=== PATIENT | female | born 1950 | race Caucasian/White ===

== ENCOUNTER 2017-07-23 10:48 | Inpatient (IN) | payer MEDICARE, OTHER ==
[2017-07-23] VITALS (25 sets, daily range): BP systolic 104–136; BP diastolic 51–76
[~2017-07-23] VITALS: Ht 167.6 cm; Wt 79.9 kg
[~2017-07-23 10:48] MED LIST: CALCIUM500 M1 PO; CARVEDILOL6.25 MG PO; LISINOPRIL2.5 M1 PO; POTASSIUM CHLO10 MEQ PO; PREDNISONE 20MG20 MG PO; TESSALON PERLE100 MG PO; TRIAMT/HCTZ TAB 37. PO; VITAMIN B121000 MC2 SL; VITAMIN D31000 IU PO; ZITHROMAX Z-PA250 M1 PO
[2017-07-23] MEDS ORDERED: LISINOPRIL 5MG T5 MG PO (11:36)
[2017-07-23] MEDS ORDERED: HCTZ/TRIAMTEREN1 CAP PO (11:37)
[2017-07-23] MEDS ORDERED: PANTOPRAZOLE SO40 MG PO (11:38)
[2017-07-23] MEDS ORDERED: EVISTA60 MG PO (11:38)
[2017-07-23] MEDS ORDERED: FLONASE 50 MCG16 GM (11:39)
[2017-07-23] MEDS ORDERED: ALLEGRA ALLERGY60 MG PO (11:39)
--- NOTE | 2017-07-23 14:13 | RADIOLOGY REPORT PS360 ---
CHEST(2 VIEWS-NOT PORTABLE) HISTORY: anemia, SVT Patient Age: 67 years: Female Ordering Physician: Brigitte Boucher MD TECHNIQUE: PA and lateral chest COMPARISON :04/27/2015 CXR FINDINGS The heart is slightly larger than on previous study. A loop recorder is now evident at the the anterior left chest projected over the left heart. Very Minor chronic changes lung funez bilateral Borderline cardiomegaly CT ratio 14.3/28.5. The pulmonary vascularity is slightly more generous but without overt CHF. No pleural effusions. No focal pneumonia. Chest wall unremarkable. T-spine intact. IMPRESSION: Borderline cardiomegaly. With Loop recorder anterior left chest, projected over left heart Nothing definitely acute. Lungs clear. No focal pneumonia.
--- NOTE | 2017-07-23 14:27 | ACUTE CARE PROGRESS NOTE (QUA) ---
Progress Notes Subjective Date 07/23/17 Time 1423 Note See H&P from [facility]. Patient found to be anemic on work-up for ablation for episodic SVT. Hgb =6.9 in office today. Admitted for evaluation and transfusion. Objective Findings Last VS-Temp:98.5 B/P:133/76 Pulse:78 Resp:18 SaO2:100 ROOM AIR Last weight lbs:176 oz:6 K.003 Method:Bed Scales Assessment/Plan Problem List 1. Anemia 2. Supraventricular tachycardia, paroxysmal Plan: order additional tests, transfuse. This inpt stay is expected to cross 2 MNs from start of care No at 1428
[2017-07-23 15:38] LABS: LYMPH % 24.7 % (10-50.0)
[2017-07-23 16:09] LABS: NEUTROPHILS 74 % (42-76)
[2017-07-23 16:49] LABS: HEMOGLOBIN 6.7 g/dL (12.2-16.2)
--- NOTE | 2017-07-23 17:44 | RADIOLOGY REPORT PS360 ---
CT ABD PELVIS W/ CONTRAST COMPARISON: None HISTORY: Anemia TECHNIQUE: Multiaxial scans obtained from the hemidiaphragms to the pelvic floor and were performed with IV and oral contrast. Sagittal and coronal reformats were evaluated as well. FINDINGS: Lower lung funez are clear of infiltrate. There are 2 tiny calcified granulomata left lower lobe. There are prominent esophageal varices. The liver is lower limits of normal in size and shows mild lobulation of the contour. There is mild splenomegaly. The stomach and pancreas appear grossly normal, there has been a previous cholecystectomy. The adrenal glands are normal. The kidneys are normal size and show symmetrical function both appear normal. There is a small umbilical hernia containing fat only measuring 1.7 cm at the mouth. There is moderate fat within the mesentery the small bowel appears normal. I do not definitely identify the appendix but there are no pericecal inflammatory changes. There is minimal scattered stool throughout the colon. There is been previous hysterectomy. The urinary bladder is unremarkable. There is no free fluid in the pelvis. IMPRESSION: 1. Findings suggesting portal hypertension with probable early cirrhosis of the liver, mild splenomegaly as well. 2. Evidence of old granulomatous disease 3. Small umbilical hernia containing fat only
[2017-07-23 17:45] LABS: ABO BLOOD TYPE O; ANTIHUMAN GLOB CROSSMATCH COMPAT; RH BLOOD TYPE POSITIVE
[2017-07-23 22:57] LABS: ANTIHUMAN GLOB CROSSMATCH COMPAT
[2017-07-24] VITALS (10 sets, daily range): BP systolic 116–136; BP diastolic 50–70
--- NOTE | 2017-07-24 08:35 | PHARMACY CLINIC NOTE ---
Patient Demographics Patient Demographics Admission date: 07/23/17 Date: 07/24/17 Time: 0834 Allergies Coded Allergies: hydrocodone (07/23/17) HEIGHT- FT: 5 IN: 6.00 K.520 VTE General Information Labs: Laboratory Tests 07/24 07/23 0110 1430 Hematology Hgb (12.2 - 16.2 g/dL) 9.0 L 6.7 *L Hct (37.0 - 47.0 %) 31.6 L 24.1 L Plt Count (142 - 424 K/mm3) 128 L Disclaimer The following section includes nursing documentation that has been pulled in for pharmacy review. Patient's VTE score: 0 Patient's VTE Risk: VERY LOW RISK Clinical trial participant? No VTE prophylaxis [id number] VTE prophylaxis ordered? Yes Type of prophylaxis/treatment: SHARI at 0834
--- NOTE | 2017-07-24 10:16 | ACUTE CARE PROGRESS NOTE (QUA) ---
Progress Notes Subjective Date 07/24/17 Time 1009 Note Her hemoglobin is 9 after transfusion of 3 units of packed red blood cells. Her CT revealed evidence of cirrhosis and esophageal varices. The varices could certainly be the source of bleeding on a chronic basis. She is a nondrinker. Thus the etiology of the cirrhosis could be steatohepatitis or cholestasis or infectious etiology. I spoke with Dr. Miramontes and he suggested that I consult Dr. Cano. This is done. I will also order an arthritis panel and hepatitis panel. Patient/family reports: feeling better Objective Findings Laboratory Tests 07/24/17 0110: Hgb 9.0 L, Hct 31.6 L 07/23/17 2301: Misc Test Units BLOOD UNIT RELEASE 07/23/17 2020: Misc Test Units BLOOD UNIT RELEASE 07/23/17 1757: Misc Test Units BLOOD UNIT RELEASE 07/23/17 1430: MCH 16.3 L 07/23/17 1430: Sodium 138, Potassium 4.0, Chloride 105, Carbon Dioxide 26, BUN 11, Creatinine 0.7, Estimated Creat Clear 100, Estimated GFR (MDRD) 84, Glucose 100, Calcium 9.3, Ferritin 2 L, Total Bilirubin 1.1 H, AST 17, ALT 14, Alkaline Phosphatase 73, Total Protein 7.8, Albumin 3.6, Globulin 4.2 H, Albumin/Globulin Ratio 0.9 L, WBC 4.0 L, RBC 4.12 L, Hgb 6.7 *L, Hct 24.1 L, MCV 58.5 L, RDW 22.7 H, Plt Count 128 L, Gran % 69.4, Gran # 2.8, Total Counted 50, Lymphocytes % 24.7, Monocytes % 5.9, Neutrophils 74, Lymphocytes (Manual) 14, Lymphocytes # 1.0, Monocytes (Manual) 12 H, Monocytes # 0.2, Platelet Estimate 300K, PUBS MCHC 27.8 L, Retic Count 3.0, Antibody Screen NEGATIVE, Miscellaneous Test POSITIVE Last VS-Temp:98.9 B/P:119/58 Pulse:78 Resp:18 SaO2:94 ROOM AIR Last weight lbs:175 oz:5 K.52 Method:Bed Scales Exam General appearance: alert, no acute distress Eyes: anicteric, conjunctiva clear, pupils reactive to light, PERRLA ENT: mucous membranes moist Cardiovascular: regular rate & rhythm Respiratory: good air movement, basilar rales (few) ABD: soft, no tenderness, no organomegaly Extremities: no peripheral edema Skin: dry, intact, normal color Neuro: alert, oriented, speech clear Reviewed: medications, vital signs, lab results, radiology report Assessment/Plan Problem List 1. Anemia 2. Supraventricular tachycardia, paroxysmal 3. Cirrhosis of liver 4. Esophageal varices in cirrhosis Patient condition Stable Plan: order additional tests This inpt stay is expected to cross 2 MNs from start of care No at 1016
[2017-07-25] VITALS (14 sets, daily range): BP systolic 105–141; BP diastolic 57–92
[2017-07-25 06:54] LABS: HEMOGLOBIN 8.1 g/dL (12.2-16.2); LYMPH % 27.7 % (10-50.0)
--- NOTE | 2017-07-25 08:18 | ACUTE CARE PROGRESS NOTE (QUA) ---
Progress Notes Subjective Date 07/25/17 Time 0715 Note Doing well ; denies CP and SOB; eating without problems; normal stools and voiding QS; ambulating without problems Objective Findings Laboratory Tests 07/25/17 0630: Sodium 139, Potassium 4.0, Chloride 108 H, Carbon Dioxide 24, BUN 9, Creatinine 0.7, Estimated Creat Clear 100, Estimated GFR (MDRD) 84, Glucose 103, Calcium 8.4 L, WBC 3.5 L, RBC 4.26, Hgb 8.1 L, Hct 29.9 L, MCV 70.2 L, RDW 22.5 H, Plt Count 97 L, MPV 9.4, Gran % 58.0, Gran # 2.0, Lymphocytes % 27.7, Monocytes % 7.5, Eosinophils % 6.4, Basophils % 0.4, Lymphocytes # 1.0, Monocytes # 0.3, Eosinophils # 0.2, Basophils # 0.0, PUBS MCHC 26.9 L, MCH 18.9 L 07/24/17 1035: Uric Acid 5.0, Ferritin 4 L, ESR 12 Vital Signs Date Time Temp Pulse Resp B/P Pulse O2 O2 Flow FiO2 Ox Delivery Rate 07/25 0748 97.9 70 16 105/57 93 ROOM AIR 07/25 0327 99.0 75 18 123/59 97 ROOM AIR 07/24 2022 98.5 75 16 116/59 97 ROOM AIR 07/24 1937 98.9 82 16 128/70 94 07/24 1600 98.9 82 16 128/70 94 ROOM AIR 07/24 0940 98.9 78 18 119/58 94 Current Medications Triamterene/HCTZ 0 .STK-MED ONE PO (DC) Potassium Chloride 0 .STK-MED ONE PO (DC) Pantoprazole Sodium 40 MG DAILY PO Lisinopril 5 MG DAILY PO Triamterene/HCTZ 0.5 TABLET DAILY PO Carvedilol 6.25 MG BID PO Potassium Chloride 10 MEQ BID PO Sodium Chloride 1,000 ML .Q10H IV Influenza Virus Vaccine Quadrival 0.5 ML PRN PRN IM Nicotine 21 MG DAILYP PRN TD 07/24 1500 10 2300 07/25 0700 Intake Total 720 1401 Output Total Balance 720 1401 Intake, IV 1401 Intake, Oral 720 Patient 177 lb Weight Last VS-Temp:97.9 B/P:105/57 Pulse:70 Resp:16 SaO2:93 ROOM AIR Last weight lbs:177 oz:3 K.371 Method:Bed Scales Exam General appearance: alert, no acute distress Cardiovascular: regular rate & rhythm Respiratory: clear to auscultation (bilat anterior and posterior) ABD: soft, no tenderness, no guarding, bowel sounds present Extremities: no peripheral edema, no calf tenderness Neuro: alert, oriented Assessment/Plan Problem List 1. Anemia 2. Supraventricular tachycardia, paroxysmal 3. Cirrhosis of liver 4. Esophageal varices in cirrhosis Patient condition Improved Plan: To see GI today This inpt stay is expected to cross 2 MNs from start of care No at 0818
--- NOTE | 2017-07-25 10:06 | Operative Note ---
Upper GI Endoscopy Procedure date: 07/25/17 Date of : 52 Procedure:Upper GI Endoscopy Esophagogastroduodenoscopy with cold biopsies Indications: Mrs. Cardona is a 67-year-old female who presents with iron deficiency anemia. Her hemoglobin and hematocrit upon admission were 6.7 and 24.1 with an MCV of 58.5. She also had thrombocytopenia with a platelet count of 128,000. She did have fatigue and malaise with some dyspnea on exertion or symptomatic anemia. Her blood work did show a ferritin level of 4. She does have normal kidney function. A CAT scan of the abdomen did show findings suggestive of portal hypertension with probable early cirrhosis with mild splenomegaly. There was some mild lobulation of the contour of the liver. The stomach and pancreas appeared normal but there was previous cholecystectomy. The patient reports no hematemesis or melena. She has had no hematochezia. She reports no abdominal pain or weight loss. She reports no use of nonsteroidal anti-inflammatory drugs but does take occasional Tylenol. The patient did have a colonoscopy in April [address] Javier Gutierrez M.D. which was normal. The patient's liver chemistries are normal with slight escalation of total bilirubin. Performing Provider: Jose Cano MD Referring Provider: Rashid Boucher M.D. Sedation: MAC sedation Procedure: Prior to the procedure, a history and physical exam was performed, and patients medications and allergies were reviewed. The risks and benefits of the procedure and the sedation options and risks were discussed with the patient. All questions were answered and informed consent was obtained. The patient was brought to the procedure room. Patient identification and proposed procedure were verified by the physician and the nurse. The patient was placed in a left lateral decubitus position and the scope was passed under direct vision. Throughout the procedure, the patient's blood pressure, pulse, and oxygen saturations were monitored continuously. The endoscope was introduced through the mouth, and advanced to the second part of duodenum. The upper GI endoscopy was accomplished without difficulty. The patient tolerated the procedure well. Findings: The scope was passed directly into the upper esophagus and advanced to the third portion of the duodenum. The post bulbar duodenum and duodenal bulb were normal with normal mucosa and conniventes. The scope was withdrawn through a normal duodenal bulb and pylorus into the stomach. There was evidence of nodular GAVE of the antrum. There was moderate atrophic gastritis of the body and fundus. There were no gastric varices. Cold biopsies were taken from the antrum 1. Cold biopsies were taken from the body and fundus to evaluate for atrophic gastritis prepyloric region. The scope was then withdrawn into the esophagus. There were grade 2 esophageal varices without stigmata. Immediate complications: None EBL (ml): 0 Impression: 1. 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 Grade 2 esophageal varices without stigmata 3. Chronic atrophic gastritis Recommendations: I will obtain additional blood work to exclude other etiologies including autoimmune hepatitis, primary biliary cirrhosis, inherited forms of liver disease (alpha-1 antitrypsin) and chronic viral hepatitis. I will obtain ammonia level and alpha-fetoprotein. We will obtain hepatic fibrotic markers. She will follow up in the office in the next couple of weeks. I would recommend parenteral iron infusion while hospitalized. 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 I will also obtain H. pylori antibody and antiparietal cell antibody because of her chronic atrophic gastritis. I would obtain B12 levels which are often low with atrophic gastritis. She will need to remain on nonselective beta tye. at 1022
[2017-07-26 04:56] VITALS: BP 117/70
[2017-07-26 07:53] VITALS: BP 120/57
--- NOTE | 2017-07-26 08:02 | ACUTE CARE PROGRESS NOTE (QUA) ---
Progress Notes Subjective Date 07/26/17 Time 0746 Note Feels well; eating and drinking well; denies any pain, SOB, or nausea; voiding QS; Bowels are moving; had EGD yesterday per Dr. Cano; does not know the results. 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 Cano; had parental iron infusion Objective Findings Laboratory Tests 07/25/17 1418: Ammonia 23 Vital Signs Date Time Temp Pulse Resp B/P Pulse O2 O2 Flow FiO2 Ox Delivery Rate 07/26 0456 98.2 78 18 117/70 96 ROOM AIR 07/25 1958 97.8 78 20 124/69 94 ROOM AIR 07/25 1920 98.5 77 20 124/69 95 07/25 1520 98.8 74 16 117/68 95 07/25 1420 98.7 71 16 120/60 97 07/25 1320 98.8 69 16 128/79 95 07/25 1256 69 16 117/67 07/25 1250 98.8 69 16 134/79 96 07/25 1220 98.8 70 16 122/77 97 07/25 1205 97.9 68 16 118/74 95 07/25 1150 97.9 64 16 132/72 98 07/25 1135 98.4 74 16 141/92 97 07/25 1120 98.4 69 16 110/66 91 07/25 1120 98.4 69 16 110/66 91 07/25 1052 72 16 122/68 97 ROOM AIR 07/25 1042 74 16 122/64 94 ROOM AIR 07/25 1033 71 16 96/54 07/25 1032 73 16 107/59 95 ROOM AIR 07/25 1016 98 07/25 0838 97.9 70 16 105/57 93 Current Medications Iron Sucrose 200 MG 1300 IV Sodium Chloride 100 ML Lactated Ringer's 1,000 ML .STK-MED ONE IV (DC) Pantoprazole Sodium 40 MG DAILY PO Lisinopril 5 MG DAILY PO Triamterene/HCTZ 0.5 TABLET DAILY PO Carvedilol 6.25 MG BID PO Potassium Chloride 10 MEQ BID PO Sodium Chloride 1,000 ML .Q10H IV Influenza Virus Vaccine Quadrival 0.5 ML PRN PRN IM Nicotine 21 MG DAILYP PRN TD 07/25 1500 07/25 2300 07/26 0700 Intake Total 1341 Output Total Balance 1341 Intake, IV 1341 Output, Stool Patient 177 lb 176 lb Weight Last VS-Temp:98.2 B/P:117/70 Pulse:78 Resp:18 SaO2:96 ROOM AIR Last weight lbs:176 oz:4 K.946 Method:Bed Scales Exam General appearance: alert, active, no acute distress Cardiovascular: regular rate & rhythm Respiratory: clear to auscultation (bilat anterior and posterior) ABD: non-distended, soft, no tenderness, no guarding, bowel sounds present Extremities: no peripheral edema, no calf tenderness Neuro: alert, oriented, speech clear Assessment/Plan Problem List 1. Anemia 2. Supraventricular tachycardia, paroxysmal 3. Cirrhosis of liver 4. Esophageal varices in cirrhosis 5. Gastritis, chronic 6. GAVE (gastric antral vascular ectasia) Patient condition Stable Plan: will check CBC and B12 this AM ; saline lock ; home if H&H is stable This inpt stay is expected to cross 2 MNs from start of care No at 0801
[2017-07-26 08:32] LABS: HEMOGLOBIN 8.9 g/dL (12.2-16.2)
[2017-07-26 08:33] LABS: LYMPH # 0.8 K/mm3 (0.7-4.5); LYMPH % 22.9 % (10-50.0)
[2017-07-26 08:42] LABS: Alpha-1-Antitrypsin 151 mg/dL (90-200)
[2017-07-26] MEDS ORDERED: K-DUR 1010 MEQ PO (09:01)
[2017-07-26] MEDS ORDERED: CARVEDILOL6.25 MG PO (09:02)
[2017-07-26] MEDS ORDERED: CARAFATE 1GM TAB1 GM PO (09:04)
[2017-07-26] MEDS ORDERED: FEOSOL325 MG PO (09:05)
[2017-07-26 09:44] VITALS: BP 120/57
[2017-07-26 10:39] LABS: HBsAg Screen Negative (Negative); Hep A Ab, IgM Negative (Negative); Hep B Core Ab, IgM Negative (Negative); Hep C Virus Ab <0.1 (0.0-0.9)
[2017-07-26 11:05] VITALS: BP 120/57
[2017-07-26 14:39] LABS: Actin (Smooth Muscle) Antibody 28 Units (0-19); Antiparietal Cell Antibody 6.7 Units (0.0-20.0); Mitochondrial (M2) Antibody <20.0 Units (0.0-20.0)
[2017-07-26 16:41] LABS: ACE 15 U/L (14-82)
[2017-07-26 18:36] LABS: Antinuclear Antibodies, IFA Negative (.)
[2017-07-26 18:36] LABS: Antinuclear Antibodies, IFA Negative (.)
--- NOTE | 2017-07-27 08:28 | DISCHARGE SUMMARY STANDARD ---
Discharge Summary ([facility]) Date of admission: 07/23/17 Date of discharge: 07/26/17 Problem List: 1. Anemia 2. Supraventricular tachycardia, paroxysmal 3. Cirrhosis of liver 4. Esophageal varices in cirrhosis 5. Gastritis, chronic 6. GAVE (gastric antral vascular ectasia) History of present illness: Ms. Cardona is a 67yo female patient of Dr. Boucher who was seen in the office of A and directly admitted for a workup of anemia. She was seen by Dr. Haque for ablation for SVT. Pt stated that her blood work showed she was anemic and they decided not to do her procedure. Her Hgb was 6.9 in office. She was admitted for evaluation and transfusion. Exam on admission: General Appearance: NAD. HEENT: unremarkable. Oral cavity: no lesions, mucosa moist and WNL, no erythema. Neck: supple, no lymphadenopathy. Chest: normal shape and expansion. Heart: RSR. Lungs: clear to auscultation. Abdomen: soft and nontender, no organomegaly or masses. Neurologic Exam: Intact, gait normal. Skin: normal, no rash. Back: mild dorsal kyphosis. Extremities: no leg edema. Hospital Course: The patient's hemoglobin was 9 after transfusion of 3 units of packed red blood cells. Her CT revealed evidence of cirrhosis and esophageal varices. Dr. Boucher spoke with Dr. Miramontes and he suggested to consult Dr. Cano. An arthritis panel and hepatitis panel were ordered. She was seen by Dr. Cano who performed an EGD. It showed Nodular GAVE with ablation, probable CAPPS, grade 2 esophageal varices, and chronic atrophic gastritis. He ordered additional labs. Her hepatitis panel was negative. All other labs are still pending. Her H & H was stable and she was able to be discharged home with a f/u in the office. Discharge medications: Stop taking the following medications: Carvedilol (Carvedilol 6.25MG) 6.25 MG TABLET ORAL AT BEDTIME NIGHTLY Continue taking these medications: Potassium Chloride (POTASSIUM CHLORIDE 10mEq CAP) 10 MEQ CAPSULE.ER 10 Milliequivalent ORAL TWICE A DAY Qty = 30 CHOLECALCIFEROL (VITAMIN D3) (Vitamin D) 1,000 UNIT TABLET 2,000 INT. UNITS ORAL DAILY Cyanocobalamin (Vitamin B12) 1,000 MCG TAB 1,000 MICROGRAM SUBLINGUAL DAILY Calcium Carbonate (Calcium) 500 MG TABLET 500 MILLIGRAM ORAL THREE TIMES A DAY LISINOPRIL (Lisinopril) 5 MG TABLET 5 MILLIGRAM ORAL DAILY Hydrochlorothiazide W/Triamter (Triamterene-Hctz 37.5-25 MG Tb) 1 EACH TABLET 1 CAPSULE ORAL DAILY RALOXIFENE HCL (Evista) 60 MG TABLET 60 MILLIGRAM ORAL DAILY Pantoprazole Sodium (Pantoprazole 40MG) 40 MG TABLET.DR 40 MILLIGRAM ORAL DAILY FEXOFENADINE HCL ([place] Allergy) 60 MG TABLET 60 MILLIGRAM ORAL DAILY as needed for ALLERGY Fluticasone Propionate (Flonase 50 Mcg Nasal [place]) 16 GM SPRAY.SUSP 1 SPRAY Nasal TWICE A DAY as needed for ALLERGY Start taking the following new medications: Carvedilol (Carvedilol 6.25MG) 6.25 MG TABLET 6.25 MILLIGRAM ORAL TWICE A DAY Qty = 60 Refills = 4 Potassium Chloride (K-Tab ER) 10 MEQ TABLET.ER 10 Milliequivalent ORAL DAILY Qty = 30 Refills = 4 Sucralfate (Carafate Tab) 1 GM TABLET 1 GRAM ORAL BEFORE MEALS AND AT BEDTIME Qty = 30 Refills = 4 Ferrous Sulfate (Feosol) 325 MG TABLET 325 MILLIGRAM ORAL TWICE A DAY Qty = 100 Refills = 2 Disposition: F/U with: Brigitte Boucher MD Follow up: 7 DAYS Activity: Cont Current activity Diet: Continue same diet Discharge to: HOME Agency needed? N at 0828
[2017-07-28 05:37] LABS: AFP, Tumor Marker 3.8 ng/mL (0.0-8.3)
[2017-07-28 07:40] LABS: ALT (SGPT) P5P 9 IU/L (0-40); Alpha 2-Macroglobulins, Qn 240 mg/dL (110-276); Apolipoprotein A-1 120 mg/dL (116-209); GGT 20 IU/L (0-60); Haptoglobin 54 mg/dL (34-200); Necroinflammat Activity Grade A0-No activity (.); Necroinflammat Activity Score 0.03 (0.00-0.17)
[2017-07-28 14:41] LABS: Phenotype (PI) MS (.)
--- OUTSIDE RECORDS SUMMARY | 2017-08-03 17:53 | External Medical Summary Rpt | CCD ---
Author Author [employer] Organization [employer] Address Unknown Phone Unavailable Purpose Continuity of Care Document - through 2016
--- OUTSIDE RECORDS SUMMARY | 2017-08-03 17:53 | External Medical Summary Rpt ---
Author Author , KIA ADAM Address Unknown Phone [email or web address] Care Team Providers Care [employer]ed [employer] Contact Printer Name Role Phone Alex Mercedes III, MD, Alex Martinez III, MD Purpose Continuity of Care Document - 09-22-2013 through 2016 Problems Code Diagnosis DOS Provider Status 807.01 807.01 09-22-2013 Pablo FRACTURE [facility] RIB-CLOSED E849.0 E849.0 09-22-2013 Pablo ACCIDENT IN [facility] E885.9 E885.9 FALL 09-22-2013 Pablo FROM [facility] [place] SLIPPING, Hospital TRIPPING, OR STUMBLING NEC Allergies, Adverse Reactions, Alerts Type Drug Allergy Adverse Reaction to Substance Substance Reaction Severity Acetaminophen Unknown Unknown Hydrocodone Unknown Unknown Vital Signs 09-22-2013 10:01 Name Value Interpretat Reference Comment ion Range Body 98.9 [degF] Temperature BP 88 mm[Hg] Diastolic BP Systolic 131 mm[Hg] Heart 82 /min Rate/Pulse O2% 96 % Respiratory 20 /min Rate 09-22-2013 10:00 Name Value Interpretat Reference Comment ion Range BP 88 mm[Hg] Diastolic BP Systolic 131 mm[Hg] Heart 82 /min Rate/Pulse O2% 96 % Respiratory 20 /min Rate Results Labs Lab Lab Date Result Refere Interp Status Commen Order Detail nces retati t Range on Blood product special preparation [Type] (07-23-2017 23:01) Blood BLOOD complet product 017 UNIT ed 23:01 RELEASE special prepara tion [Type] Blood product special preparation [Type] (07-23-2017 20:20) Blood BLOOD complet product 017 UNIT ed 20:20 RELEASE special prepara tion [Type] Blood product special preparation [Type] (07-23-2017 17:57) Blood BLOOD complet product 017 UNIT ed 17:57 RELEASE special prepara tion [Type] Blood type & Crossmatch panel in Blood (07-23-2017 14:30) Major COMPAT complet crossma 017 ed tch 14:30 [interp retatio n] Major COMPAT complet crossma 017 ed tch 14:30 [interp retatio n] by Immedia te spin Blood type & Crossmatch panel in Blood (07-23-2017 14:30) Blood NEGATIV NEGATIV complet group 017 E E ed antibod 14:30 y screen [Presen ce] in Serum or Plasma Rh POSITIV complet [Type] 017 E ed in 14:30 Blood ABO O complet group 017 ed [Type] 14:30 in Blood CBC with Ordered Manual Differential panel in Blood (07-23-2017 14:30) LYMPH 14 % 10% - Normal complet 017 50% ed 14:30 Platele 300K complet ts 017 ed [Presen 14:30 ce] in Blood by Light microsc opy Encounters Encounter Start End Date Code Location Performer Type Date Emergency JONATAN Martinez (ER) 3 09:15 3 10:01 [facility] Alex Cross
--- OUTSIDE RECORDS SUMMARY | 2017-08-03 17:53 | External Medical Summary Rpt ---
Author Author , KIA ADAM Address Unknown Phone Care Team Providers Care Staff Mechanical Engineer Name Role Phone Alex Mercedes III, MD, Alex Martinez III, MD Purpose Continuity of Care Document - 09-22-2013 through 2016 Problems Code Diagnosis DOS Provider Status 807.01 807.01 09-22-2013 Pablo FRACTURE [facility] RIB-CLOSED E849.0 E849.0 09-22-2013 Pablo ACCIDENT IN [facility] E885.9 E885.9 FALL 09-22-2013 Pablo FROM [facility] SLIPPING, Hospital TRIPPING, OR STUMBLING NEC Allergies, [...] JONATAN Martinez (ER) 3 09:15 3 10:01 [facility] Alex Cross
--- OUTSIDE RECORDS SUMMARY | 2017-08-03 17:53 | External Medical Summary Rpt ---
Demographics Preferred Language Vincentian Marital Status Unknown Moravian Affiliation Unknown Race Unknown Ethnic Group Unknown Author Author KIA Address Unknown Phone Immunization No patient found.
--- OUTSIDE RECORDS SUMMARY | 2017-08-03 17:53 | External Medical Summary Rpt ---
Demographics Preferred Language Haitian Marital Status Unknown Latter-Day Affiliation Unknown Race Unknown Ethnic Group Unknown Author Author KIA Address Unknown Phone Immunization No patient found.
--- OUTSIDE RECORDS SUMMARY | 2017-08-03 17:54 | External Medical Summary Rpt ---
Author Author [employer], [employer] Organization [employer] Address Unknown Phone Unavailable Results CBC W Auto Differential panel in Blood Observa Value Referen Units Interpr Notes Date tion ce etation Range Granulocy 1.8 - 7.8 K/mm3 Normal No Oct 3 francisco informati 2017 8:00 [#/volume on in AM ] in source Blood by data Automated count Granulocy 37.0 - % Normal No Oct 3 francisco/100 80.0 informati 2017 8:00 leukocyte on in AM s in source Blood by data Automated count Hematocri 37.0 - % Low No Oct 3 t [Volume 47.0 informati 2017 8:00 on in AM Fraction] source of Blood data Hemoglobi 12.2 - g/dL Low No Oct 3 n 16.2 informati 2017 8:00 [Mass/vol on in AM ume] in source Blood data Lymphocyt 0.7 - 4.5 K/mm3 Normal No Oct 3 es informati 2017 8:00 [#/volume on in AM ] in source Unspecifi data ed specimen by Automated count Lymphocyt 10 - 50.0 % Normal No Oct 3 es informati 2017 8:00 [#/volume on in AM ] in source Unspecifi data ed specimen by Automated count Erythrocy 27 - 31.2 pg Low No Oct 3 te mean informati 2017 8:00 corpuscul on in AM ar source hemoglobi data n [Entitic mass] Erythrocy 31.8 - g/dl Low No Oct 3 te mean 35.4 informati 2017 8:00 corpuscul on in AM ar source hemoglobi data n concentra tion [Mass/vol ume] by Automated count Erythrocy 82.2 - fL Low No Oct 3 te mean 97.8 informati 2017 8:00 corpuscul on in AM ar volume source [Entitic data volume] by Automated count Monocytes 0.1 - 1.0 K/mm3 Normal No Oct 3 informati 2017 8:00 [#/volume on in AM ] in source Blood by data Automated count Monocytes 1.7 - 9.3 % Normal No Jul 3 /100 informati 2016 8:00 leukocyte on in AM s in source Blood by data Automated count Platelets 142 - 424 K/mm3 Low No Jul 3 informati 2016 8:00 [#/volume on in AM ] in source Blood data Erythrocy 4.2 - 5.4 M/mm3 Normal No Jul 26 francisco informati 2016 8:00 [#/volume on in AM ] in source Amniotic data fluid Erythrocy 11.5 - % High No Jul 26 te 17.5 alert informati 2016 8:00 distribut on in AM ion width source [Entitic data volume] by Automated count Leukocyte 4.8 - K/mm3 Low No Jul 26 s 10.8 informati 2016 8:00 [#/volume on in AM ] in source Blood data Cobalamin (Vitamin B12) [Mass/volume] in Serum Observa Value Referen Units Interpr Notes Date tion ce etation Range Cobalamin 211 - 946 pg/mL No Performed Jul 26 (Vitamin informati at: CB 2016 6:00 B12) on in - [facility] AM [Mass/vol source ume] in data [place] [address] [address] 0 [place], [place] [id number] Telemarketing Representative: Taye Walden PhD, Phone: [phone] HCV FibroSure Observa Value Referen Units Interpr Notes Date tion ce etation Range Apolipopr 116 - 209 mg/dL No No Jul 2 otein A-I informati informati 2016 2:18 on in on in PM [Mass/vol source source ume] in data data Serum or Plasma Bilirubin 0.0 - 1.2 mg/dL No No Oct 2 .total informati informati 2016 2:18 [Mass/vol on in on in PM ume] in source source Serum or data data Plasma Gamma 0 - 60 IU/L No No Jul 2 glutamyl informati informati 2016 2:18 transfera on in on in PM se source source [Enzymati data data c activity/ volume] in Serum or Plasma Alanine 0 - 40 IU/L No No Oct 2 aminotran informati informati 2016 2:18 sferase on in on in PM [Enzymati source source c data data activity/ volume] in Serum or Plasma by With P-5'-P Interpr Comment . No No Quantit Jul 2 etation informa informa ative 2017 s: tion in tion in results 2:18 PM source source of 6 data data biochem ical tests are analyze dusing a computa tional algorit hm to provide a quantit ativesu rrogate marker (0.0-1. 0) for liver fibrosi s (METAVI R F0-F4) and for necroin flammat ory activit y (METAVI R A0-A3). Fibrosi Comment . No No <0.21 = Jul 25 s informa informa Stage 2017 Scoring tion in tion in F0 - No 2:18 PM : source source data data fibrosi s0.21 - 0.27 = Stage F0 - F10.27 - 0.31 = Stage F1 - Portal fibrosi s0.31 - 0.48 = Stage F1 - F20.48 - 0.58 = Stage F2 - Bridgin g fibrosi s with few septa0. 58 - 0.72 = Stage F3 - Bridgin g fibrosi s with many septa0. 72 - 0.74 = Stage F3 - F4>0.74 = Stage F4 - Cirrhos is Necroin Comment . No No <0.17 = Jul 25 flamm informa informa Grade 2017 Activit tion in tion in A0 - No 2:18 PM y source source Scoring data data Activit : y0.17 - 0.29 = Grade A0 - A10.29 - 0.36 = Grade A1 - Minimal activit y0.36 - 0.52 = Grade A1 - A20.52 - 0.60 = Grade A2 - Moderat e activit y0.60 - 0.62 = Grade A2 - A3>0.62 = Grade A3 - Severe activit y Service Comment . No No The Jul 25 informa informa negativ 2017 comment tion in tion in e 2:18 PM source source predict data data chivo value of a Fibrote st score <0.31(a bsence of clinica lly signifi cant fibrosi s) was 85% whencom pared to liver biopsy in 1,270 HCV infecte d patient swith a 38% prevale nce of signifi cant liver fibrosi s (F2, 3or 4). The positiv e predict chivo value of a Fibro-t est score>0 .48 (F2, 3, 4) was 61% in that same patient cohort. HCVFibr oSURE is not recomme nded in patient s with Gilbert Disease , acute hemolys is (e.g. HCV ribavir in therapy mediate d hemolys is) acute hepa-ti tis of the liver, extra-h epatic cholest asis, transpl ant patient s, and/or renalin suffici ency patient s. Any of these clinica l situati onsmay lead to inaccur ate quantit ative predict ions offibro sis and necroin flammat ory activit y in the liver.T HIS TEST WAS DEVELOP ED AND ITS PERFORM ANCE CHARACT ERISTIC SDETERM INED BY [facility] . IT HAS NOT BEEN CLEARED OR APPROVE DBY THE FOOD AND DRUG ADMINIS TRATION . THE FDA HAS DETERMI NEDTHAT SUCH CLEARAN CE OR APPROVA L IS NOT NECESSA RY.Perf orming site:[place] [id number]: Catherine schneider MDFor inquiri es, the physici an may contact Branch: Lab: Fibrosis 0.00 - No High No Jul 2 score 0.21 informati informati 2017 2:18 on in on in PM source source data data Comment Comment . No No This Jul 25 : informa informa test 2017 tion in tion in was 2:18 PM source source develop data data ed and its perform ance charact eristic sdeterm ined by [facility] . It has not been cleared or approve dby the Food and Drug Adminis tration . The FDA hasdete rmined that such clearan ce or approva l is notnece ssary.F or questio ns regardi ng this report please contact custome rservic e at [phone] .Perfor med at: - [facility] [address], [place], [place] [address] Directo r: Alex Webb MD, Phone: [phone] Fibrosi Comment . No No F3-Brid Oct 2 s stage informa informa ging 2017 tion in tion in fibrosi 2:18 PM source source s with data data many septa Necroinfl 0.00 - No No No Oct 2 ammatory 0.17 informati informati informati 2017 2:18 activity on in on in on in PM score source source source data data data Necroin A0-No . No No No Oct 2 flammat activit informa informa informa 2017 ory y tion in tion in tion in 2:18 PM activit source source source y grade data data data Alpha-2-M 110 - 276 mg/dL No No Oct 2 acroglobu informati informati 2017 2:18 george on in on in PM [Mass/vol source source ume] in data data Serum or Plasma Haptoglob 34 - 200 mg/dL No No Oct 2 in informati informati 2017 2:18 [Mass/vol on in on in PM ume] in source source Serum or data data Plasma Ammonia [Mass/volume] in Unspecified specimen Observa Value Referen Units Interpr Notes Date tion ce etation Range Ammonia 19 - 54 umoL/L Normal No Oct 2 [Mass/vol informati 2017 2:18 ume] in on in PM Unspecifi source ed data specimen Basic metabolic panel in Blood Observa Value Referen Units Interpr Notes Date tion ce etation Range Urea 7 - 18 mg/dL Normal No Oct 2 nitrogen informati 2017 6:30 [Mass/vol on in AM ume] in source Serum or data Plasma Calcium 8.5 - mg/dL Low No Oct 2 [Mass/vol 10.1 informati 2017 6:30 ume] in on in AM Serum or source Plasma data Chloride 98 - 107 mmoL/L High No Oct 2 [Moles/vo informati 2017 6:30 lume] in on in AM Serum or source Plasma data Carbon 21.0 - mmoL/L Normal No Oct 2 dioxide, 32.0 informati 2017 6:30 total on in AM [Moles/vo source lume] in data Serum or Plasma Creatinin 0.55 - mg/dL Normal No Oct 2 e 1.02 informati 2017 6:30 [Mass/vol on in AM ume] in source Serum or data Plasma Creatinin 50 - 200 ML/MIN Normal No Oct 2 e renal informati 2017 6:30 clearance on in AM source predicted data by Cockcroft -Gault formula Estimated 59- ML/MIN No REFERENCE Oct 2 informati RANGE: 2017 6:30 glomerula on in >60 AM r source ML/MIN/1. filtratio data 73 SQUARE n rate METERSIf (GF this patient is -A merican, then multiply theresult by 1.210. Glucose 74 - 106 mg/dL Normal No Oct 2 [Mass/vol informati 2016 6:30 ume] in on in AM Serum or source Plasma data Potassium 3.5 - 5.1 mmoL/L Normal No Jul 2 informati 2016 6:30 [Moles/vo on in AM lume] in source Serum or data Plasma Sodium 136 - 145 mmoL/L Normal No Jul 2 [Moles/vo informati 2017 6:30 lume] in on in AM Serum or source Plasma data CBC W Auto Differential panel in Blood Observa Value Referen Units Interpr Notes Date tion ce etation Range Basophils 0 - 0.2 K/MM3 Normal No Jul 2 informati 2016 6:30 [#/volume on in AM ] in source Blood by data Automated count Basophils 0.1 - 2.0 % Normal No Jul 25 informati 2017 6:30 leukocyte on in AM s in source Blood by data Automated count Eosinophi 0.0 - 0.4 K/mm3 Normal No Jul 2 ls informati 2016 6:30 [#/volume on in AM ] in source Blood by data Automated count Eosinophi 0.1 - % Normal No Jul 2 ls/100 12.0 informati 2017 6:30 leukocyte on in AM s in source Blood by data Automated count Granulocy 1.8 - 7.8 K/mm3 Normal No Jul 2 francisco informati 2017 6:30 [#/volume on in AM ] in source Blood by data Automated count Granulocy 37.0 - % Normal No Jul 2 francisco/100 80.0 informati 2017 6:30 leukocyte on in AM s in source Blood by data Automated count Hematocri 37.0 - % Low No Jul 2 t [Volume 47.0 informati 2017 6:30 on in AM Fraction] source of Blood data Hemoglobi 12.2 - g/dL Low No Jul 2 n 16.2 informati 2016 6:30 [Mass/vol on in AM ume] in source Blood data Lymphocyt 0.7 - 4.5 K/mm3 Normal No Jul 2 es informati 2016 6:30 [#/volume on in AM ] in source Unspecifi data ed specimen by Automated count Lymphocyt 10 - 50.0 % Normal No Jul 2 es informati 2016 6:30 [#/volume on in AM ] in source Unspecifi data ed specimen by Automated count Erythrocy 27 - 31.2 pg Low No Oct 2 te mean informati 2016 6:30 corpuscul on in AM ar source hemoglobi data n [Entitic mass] Erythrocy 31.8 - g/dl Low No Oct 2 te mean 35.4 informati 2017 6:30 corpuscul on in AM ar source hemoglobi data n concentra tion [Mass/vol ume] by Automated count Erythrocy 82.2 - fl Low No Oct 2 te mean 97.8 informati 2016 6:30 corpuscul on in AM ar volume source [Entitic data volume] by Automated count Monocytes 0.1 - 1.0 K/mm3 Normal No Oct 2 informati 2017 6:30 [#/volume on in AM ] in source Blood by data Automated count Monocytes 1.7 - 9.3 % Normal No Oct 2 /100 informati 2017 6:30 leukocyte on in AM s in source Blood by data Automated count Platelet 7.4 - fl Normal No Oct 2 mean 10.4 informati 2017 6:30 volume on in AM [Entitic source volume] data in Blood by Automated count Platelets 142 - 424 K/mm3 Low No Oct 2 informati 2017 6:30 [#/volume on in AM ] in source Blood data Erythrocy 4.2 - 5.4 M/mm3 Normal No Oct 2 francisco informati 2017 6:30 [#/volume on in AM ] in source Amniotic data fluid Erythrocy 11.5 - % High No Oct 2 te 17.5 informati 2016 6:30 distribut on in AM ion width source [Entitic data volume] by Automated count Leukocyte 4.8 - K/MM3 Low No Oct 2 s 10.8 informati 2016 6:30 [#/volume on in AM ] in source Blood data Ferritin [Mass/volume] in Serum or Plasma Observa Value Referen Units Interpr Notes Date tion ce etation Range Ferritin 8 - 388 ng/mL Low No Oct 1 [Mass/vol informati 2017 ume] in on in 10:35 AM Serum or source Plasma data Urate [Mass/volume] in Serum or Plasma Observa Value Referen Units Interpr Notes Date tion ce etation Range Urate 2.6 - 7.2 mg/dL Normal No Oct 1 [Mass/vol informati 2016 ume] in on in 10:35 AM Serum or source Plasma data Erythrocyte sedimentation rate by Westergren method Observa Value Referen Units Interpr Notes Date tion ce etation Range Erythrocy 0 - 30 mm/hr Normal No Oct 1 te informati 2016 sedimenta on in 10:35 AM tion rate source by data Westergre n method Hemoglobin & Hematocrit panel in Blood Observa Value Referen Units Interpr Notes Date ti ce etation Range COMMENTS TO GUEST SERVICE HOST: 1 HR POST-TRANSFUSION Hematocri 37.0 - % Low No Jul 24 t [Volume 47.0 informati 2016 1:10 on in AM Fraction] source of Blood data Hemoglobi 12.2 - g/dL Low No Jul 24 n 16.2 informati 2016 1:10 [Mass/vol on in AM ume] in source Blood data Blood product special preparation [Type] Observa Value Referen Units Interpr Notes Date ti ce etation Range Blood BLOOD No No No BLOOD Sep 30 product UNIT informa informa informa UNIT # 2017 RELEASE tion in in in : W0382 11:01 special source source source 17 PM data data data [id number] prepara RELEASE tion D [Type] 7 [id number] rks,Bacilio nO POSITIV E Blood product special preparation [Type] Observa Value Referen Units Interpr Notes Date ti ce etation Range Blood BLOOD No No No BLOOD Sep 30 product UNIT informa informa informa UNIT # 2017 RELEASE ti in in in : W0382 8:20 PM special source source source 17 data data data [id number] prepara RELEASE tion D [Type] 7 2020Spa rks,Bacilio nO POSITIV E Blood product special preparation [Type] Observa Value Referen Units Interpr Notes Date tion ce etation Range Blood BLOOD No No No BLOOD Sep 30 product UNIT informa informa informa UNIT # 2017 RELEASE tion in in in : W0382 5:57 PM special source source source 17 data data data [id number] prepara RELEASE tion D [Type] 7Noel,R ichardO POS Iron and TIBC Observa Value Referen Units Interpr Notes Date tion ce etation Range Iron 250 - 450 ug/dL High No Sep 30 binding informati 2017 2:30 capacity on in PM [Mass/vol source ume] in data Serum or Plasma Iron 118 - 369 ug/dL High No Sep 30 binding informati 2017 2:30 capacity. on in PM unsaturat source ed data [Mass/vol ume] in Serum or Plasma Iron 27 - 139 ug/dL Low No Sep 30 [Mass/vol informati 2017 2:30 ume] in on in PM Serum or source Plasma data Iron 15 - 55 % Low Performed Sep 30 saturatio at: CB 2017 2:30 n [Mass] - [facility] PM in Serum or Plasma [id number] [place], [place] [id number] Telemarketing Representative: Taye Walden PhD, Phone: [phone] Folate [Mass/volume] in Serum or Plasma Observa Value Referen Units Interpr Notes Date tion ce etation Range Folate >3.0 ng/mL No Performed Sep 30 [Mass/vol informati at: 2016 2:30 ume] in on in - [facility] PM Serum or source Plasma data [id number] [place], [place] [id number] Telemarketing Representative: Taye Walden PhD, Phone: [phone] Blood type & Crossmatch panel in Blood Observa Value Referen Units Interpr Notes Date tion ce etation Range Hold? N Transfuse now? 1 UNIT NOW Major COMPAT No No No No Sep 30 crossma informa informa informa informa 2017 tch tion in tion in tion in tion in 2:30 PM [interp source source source source retatio data data data data n] Major COMPAT No No No No Sep 30 crossma informa informa informa informa 2017 tch tion in tion in tion in tion in 2:30 PM [interp source source source source retatio data data data data n] by Immedia te spin Blood type & Crossmatch panel in Blood Observa Value Referen Units Interpr Notes Date tion ce etation Range Hold? N Transfuse now? Y Major COMPAT No No No No Sep 30 crossma informa informa informa informa 2017 tch tion in tion in tion in tion in 2:30 PM [interp source source source source retatio data data data data n] Major COMPAT No No No No Sep 30 crossma informa informa informa informa 2017 tch tion in tion in tion in tion in 2:30 PM [interp source source source source retatio data data data data n] by Immedia te spin Blood type & Crossmatch panel in Blood Observa Value Referen Units Interpr Notes Date tion ce etation Range Hold? N Transfuse now? Y Major COMPAT No No No No Sep 30 crossma informa informa informa informa 2017 tch tion in tion in tion in tion in 2:30 PM [interp source source source source retatio data data data data n] Major COMPAT No No No No Sep 30 crossma informa informa informa informa 2017 tch tion in tion in tion in tion in 2:30 PM [interp source source source source retatio data data data data n] by Immedia te spin Blood type & Crossmatch panel in Blood Observa Value Referen Units Interpr Notes Date ti ce etation Range Blood NEGATIV NEGATIV No No No Sep 30 group E E informa informa informa 2017 antibod tion in tion in ti in 2:30 PM y source source source screen data data data [Presen ce] in Serum or Plasma Rh POSITIV No No No No Sep 30 [Type] E informa informa informa informa 2017 in tion in tion in tion in tion in 2:30 PM Blood source source source source data data data data ABO O No No No No Sep 30 group informa informa informa informa 2017 [Type] tion in tion in tion in tion in 2:30 PM in source source source source Blood data data data data CBC with Ordered Manual Differential panel in Blood Observa Value Referen Units Interpr Notes Date tion ce etation Range Granulocy 1.8 - 7.8 K/mm3 Normal No Sep 30 francisco informati 2017 2:30 [#/volume on in PM ] in source Blood by data Automated count Granulocy 37.0 - % Normal No Sep 30 francisco/100 80.0 informati 2017 2:30 leukocyte on in PM s in source Blood by data Automated count Hematocri 37.0 - % Low No Sep 30 t [Volume 47.0 informati 2017 2:30 on in PM Fraction] source of Blood data Hemoglobi 12.2 - g/dL Low alert Sep 30 n 16.2 2016 2:30 [Mass/vol CRITICAL PM ume] in RESULTS Blood RESU LTS CALLED TO: [facility]ACH 07/23/17 1648 [place] ard 1648:HGB previousl y reported as: 6.7 *L g/dL CRITICAL RESULTS RESU LTS CALLED TO: 07/23/17 1538 [place] crystal Lymphocyt 0.7 - 4.5 K/mm3 Normal No Sep 30 es informati 2016 2:30 [#/volume on in PM ] in source Unspecifi data ed specimen by Automated count Lymphocyt 10 - 50.0 % Normal No Sep 30 es informati 2016 2:30 [#/volume on in PM ] in source Unspecifi data ed specimen by Automated count LYMPH 14 10 - 50 % Normal No Sep 30 informa 2017 tion in 2:30 PM source data Erythrocy 27 - 31.2 pg Low No Sep 30 te mean informati 2017 2:30 corpuscul on in PM ar source hemoglobi data n [Entitic mass] Erythrocy 31.8 - g/dl Low No Sep 30 te mean 35.4 informati 2016 2:30 corpuscul on in PM ar source hemoglobi data n concentra tion [Mass/vol ume] by Automated count Erythrocy 82.2 - fL Low No Sep 30 te mean 97.8 informati 2017 2:30 corpuscul on in PM ar volume source [Entitic data volume] by Automated count Monocytes 0.1 - 1.0 K/mm3 Normal No Sep 30 informati 2016 2:30 [#/volume on in PM ] in source Blood by data Automated count Monocytes 1.7 - 9.3 % Normal No Sep 30 /100 informati 2016 2:30 leukocyte on in PM s in source Blood by data Automated count Monocytes 2 - 9 % High No Sep 30 informati 2017 2:30 leukocyte on in PM s in source Blood by data Automated count Platele 300K No No No No Sep 30 ts informa informa informa informa 2016 [Presen tion in tion in tion in tion in 2:30 PM ce] in source source source source Blood data data data data by Light microsc opy Platelets 142 - 424 K/mm3 Low No Sep 30 informati 2017 2:30 [#/volume on in PM ] in source Blood data Neutrophi 42 - 76 % Normal No Sep 30 ls informati 2016 2:30 [#/volume on in PM ] in source Blood by data Automated count Erythrocy 4.2 - 5.4 M/mm3 Low No Sep 30 francisco informati 2016 2:30 [#/volume on in PM ] in source Amniotic data fluid Erythrocy 11.5 - % High No Sep 30 te 17.5 informati 2016 2:30 distribut on in PM ion width source [Entitic data volume] by Automated count Cells No #CELLS No No Sep 30 Counted informati informati informati 2016 2:30 Total [#] on in on in on in PM in Blood source source source data data data Leukocyte 4.8 - K/mm3 Low No Sep 30 s 10.8 informati 2016 2:30 [#/volume on in PM ] in source Blood data Reticulocytes [#/volume] in Blood by Automated count Observa Value Referen Units Interpr Notes Date tion ce etation Range Reticuloc 0.9 - 3.2 % Normal No Sep 30 ytes informati 2016 2:30 [#/volume on in PM ] in source Blood by data Automated count Comprehensive metabolic 2000 panel in Serum or Plasma Observa Value Referen Units Interpr Notes Date tion ce etation Range Albumin/G 1.1 - 1.8 No Low No Sep 30 lobulin informati informati 2017 2:30 [Mass on in on in PM ratio] in source source Serum or data data Plasma Albumin 3.4 - 5.0 gm/dL Normal No Sep 30 [Mass/vol informati 2017 2:30 ume] in on in PM Serum or source Plasma data Alkaline 46 - 116 U/L Normal No Sep 30 phosphata informati 2017 2:30 se on in PM [Enzymati source c data activity/ volume] in Serum or Plasma Bilirubin 0.2 - 1.0 mg/dL High No Sep 30 .total informati 2017 2:30 [Mass/vol on in PM ume] in source Serum or data Plasma Urea 7 - 18 mg/dL Normal No Sep 30 nitrogen informati 2017 2:30 [Mass/vol on in PM ume] in source Serum or data Plasma Calcium 8.5 - mg/dL Normal No Sep 30 [Mass/vol 10.1 informati 2017 2:30 ume] in on in PM Serum or source Plasma data Chloride 98 - 107 mmoL/L Normal No Sep 30 [Moles/vo informati 2017 2:30 lume] in on in PM Serum or source Plasma data Carbon 21.0 - mmoL/L Normal No Sep 30 dioxide, 32.0 informati 2017 2:30 total on in PM [Moles/vo source lume] in data Serum or Plasma Creatinin 0.55 - mg/dL Normal No Sep 30 e 1.02 informati 2017 2:30 [Mass/vol on in PM ume] in source Serum or data Plasma Creatinin 50 - 200 ML/MIN Normal No Sep 30 e renal informati 2016 2:30 clearance on in PM source predicted data by Cockcroft -Gault formula Estimated 59- ML/MIN No REFERENCE Sep 30 informati RANGE: 2017 2:30 glomerula on in >60 PM r source ML/MIN/1. filtratio data 73 SQUARE n rate METERSIf (GF this patient is -A merican, then multiply theresult by 1.210. Globulin 1.3 - 3.2 gm/dL High No Sep 30 [Mass/vol informati 2017 2:30 ume] in on in PM Serum source data Glucose 74 - 106 mg/dL Normal No Sep 30 [Mass/vol informati 2016 2:30 ume] in on in PM Serum or source Plasma data Potassium 3.5 - 5.1 mmoL/L Normal No Sep 30 informati 2017 2:30 [Moles/vo on in PM lume] in source Serum or data Plasma Sodium 136 - 145 mmoL/L Normal No Sep 30 [Moles/vo informati 2017 2:30 lume] in on in PM Serum or source Plasma data Aspartate 15 - 37 U/L Normal No Sep 30 informati 2017 2:30 aminotran on in PM sferase source [Enzymati data c activity/ volume] in Serum or Plasma Alanine 12 - 78 U/L Normal No Sep 30 aminotran informati 2017 2:30 sferase on in PM [Enzymati source c data activity/ volume] in Serum or Plasma Protein 6.4 - 8.2 gm/dL Normal No Sep 30 [Mass/vol informati 2017 2:30 ume] in on in PM Serum or source Plasma data Ferritin [Mass/volume] in Serum or Plasma Observa Value Referen Units Interpr Notes Date tion ce etation Range Ferritin 8 - 388 ng/mL Low No Sep 30 [Mass/vol informati 2017 2:30 ume] in on in PM Serum or source Plasma data CBC with Ordered Manual Differential panel in Blood Observa Value Referen Units Interpr Notes Date tion ce etation Range Granulocy 1.8 - 7.8 K/mm3 Normal No Sep 30 francisco informati 2017 2:30 [#/volume on in PM ] in source Blood by data Automated count Granulocy 37.0 - % Normal No Sep 30 francisco/100 80.0 informati 2017 2:30 leukocyte on in PM s in source Blood by data Automated count Hematocri 37.0 - % Low No Sep 30 t [Volume 47.0 informati 2017 2:30 on in PM Fraction] source of Blood data Hemoglobi 12.2 - g/dL Low alert Sep 30 n 16.2 2016 2:30 [Mass/vol CRITICAL PM ume] in RESULTS Blood RESU LTS CALLED TO: 07/23/17 1538 Jt,Rich crystal Lymphocyt 0.7 - 4.5 K/mm3 Normal No Sep 30 es informati 2017 2:30 [#/volume on in PM ] in source Unspecifi data ed specimen by Automated count Lymphocyt 10 - 50.0 % Normal No Sep 30 es informati 2017 2:30 [#/volume on in PM ] in source Unspecifi data ed specimen by Automated count LYMPH 14 10 - 50 % Normal No Sep 30 informa 2017 tion in 2:30 PM source data Erythrocy 27 - 31.2 pg Low No Sep 30 te mean informati 2017 2:30 corpuscul on in PM ar source hemoglobi data n [Entitic mass] Erythrocy 31.8 - g/dl Low No Sep 30 te mean 35.4 informati 2016 2:30 corpuscul on in PM ar source hemoglobi data n concentra tion [Mass/vol ume] by Automated count Erythrocy 82.2 - fL Low No Sep 30 te mean 97.8 informati 2016 2:30 corpuscul on in PM ar volume source [Entitic data volume] by Automated count Monocytes 0.1 - 1.0 K/mm3 Normal No Sep 30 informati 2016 2:30 [#/volume on in PM ] in source Blood by data Automated count Monocytes 1.7 - 9.3 % Normal No Sep 30 /100 informati 2016 2:30 leukocyte on in PM s in source Blood by data Automated count Monocytes 2 - 9 % High No Sep 30 /100 informati 2016 2:30 leukocyte on in PM s in source Blood by data Automated count Platele 300K No No No No Sep 30 ts informa informa informa informa 2016 [Presen tion in tion in tion in tion in 2:30 PM ce] in source source source source Blood data data data data by Light microsc opy Platelets 142 - 424 K/mm3 Low No Sep 30 inform2016 2:30 [#/volume on in PM ] in source Blood data Neutrophi 42 - 76 % Normal No Sep 30 ls informati 2016 2:30 [#/volume on in PM ] in source Blood by data Automated count Erythrocy 4.2 - 5.4 M/mm3 Low No Sep 30 francisco inform2016 2:30 [#/volume on in PM ] in source Amniotic data fluid Erythrocy 11.5 - % High No Sep 30 te 17.5 informati 2016 2:30 distribut on in PM ion width source [Entitic data volume] by Automated count Cells No #CELLS No No Sep 30 Counted informati informati informati 2016 2:30 Total [#] on in on in on in PM in Blood source source source data data data Leukocyte 4.8 - K/mm3 Low No Sep 30 s 10.8 informati 2016 2:30 [#/volume on in PM ] in source Blood data Reticulocytes [#/volume] in Blood by Automated count Observa Value Referen Units Interpr Notes Date tion ce etation Range Reticuloc 0.9 - 3.2 % Normal No Sep 30 ytes informati 2016 2:30 [#/volume on in PM ] in source Blood by data Automated count ABORT EP CASE Observa Value Referen Units Interpr Notes Date tion ce etation Range Aborted No No No No Sep 25 informa informa informa informa 2017 invasiv tion in tion in tion in tion in 8:56 AM e source source source source cardiol data data data data ogy procedu re- see Procedu re log for details . Ferritin Observa Value Referen Units Interpr Notes Date tion ce etation Range Ferriti 3 13 - ng/mL Low No Sep 21 n 150 informa 2017 [Mass/v tion in 12:05 olume] source PM in data Serum or Plasma B12/ FA Observa Value Referen Units Interpr Notes Date tion ce etation Range CYANOCO 981 211 - pg/mL High No Sep 21 BALAMIN 946 informa 2017 .TRUE tion in 9:45 AM source data Folic 6.82 4.50 - ng/mL No No Sep 21 Acid 37.30 informa informa 2017 Lvl tion in tion in 9:45 AM source source data data Clin Path PB Observa Value Referen Units Interpr Notes Date tion ce etation Range PB Path Periphe No No No Jayda Sep 21 ral informa informa informa L 2017 blood tion in tion in tion in [facility] 1:17 PM smear: source source source e\.br\( The data data data Electro smear nically shows signed adequat e by)\.br leukocy \Verifi te and ed: absolut .21.2 e cell 017 counts. No blasts or lymphom a cells are seen. There is a marked hypochr omic microcy tic anemia noted with anisocy tosis. Scatter ed ovalocy francisco are seen as well as some target cells. Occasio nal tear drop cells and occasio nal polychr omasia is identif ied. No increas e of schisto cytes is seen. No nucleat ed red cells are seen. The platele t count is mildly decreas ed with no cluster s of clumps. The morphol ogy is unremar kable.6 7 year old female with marked microcy tic hypochr omic anemia. Correla te with anemia work up and patient s clinica l history . Diff Observa Value Referen Units Interpr Notes Date tion ce etation Range [place] 2 No % No No Sep 21 informa informa informa 2017 tion in tion in tion in 8:02 AM source source source data data data Myelo 1 No % No No Sep 21 informa informa informa 2017 tion in tion in tion in 8:02 AM source source source data data data NRBC 1 0 - 1 % No No Sep 21 informa informa 2017 tion in tion in 8:02 AM source source data data RBC Microcy No No No No Sep 21 Morph tic informa informa informa informa 2017 tion in tion in tion in tion in 8:02 AM source source source source data data data data Polychr Slight No No No No Sep 21 om informa informa informa informa 2017 tion in tion in tion in tion in 8:02 AM source source source source data data data data Hypochr Marked No No No No Sep 21 om informa informa informa informa 2017 tion in tion in tion in tion in 8:02 AM source source source source data data data data Ovalocy Occasio No No No No Sep 21 te nal informa informa informa informa 2017 tion in tion in tion in tion in 8:02 AM source source source source data data data data Teardro Occasio No No No No Sep 21 p Cell nal informa informa informa informa 2017 tion in tion in tion in tion in 8:02 AM source source source source data data data data CBC Observa Value Referen Units Interpr Notes Date tion ce etation Range Do not repeat if done in the past 10 days. LEUKOCY 4.4 4.0 - x10(3)/ No No Sep 21 FRANCISCO 11.0 mcL informa informa 2017 tion in tion in 7:31 AM source source data data Erythro 4.17 3.80 - x10(6)/ No No Sep 21 cytes 5.10 mcL informa informa 2017 [#/volu tion in tion in 7:31 AM me] in source source Blood data data by Automat ed count Hemoglo 6.8 12.0 - gm/dL No No Sep 21 bin 15.6 informa informa 2017 [Mass/v tion in tion in 7:31 AM olume] source source in data data Blood Hematoc 24.2 35.7 - % Low No Sep 21 rit 45.9 informa 2017 [Volume tion in 7:31 AM source Fractio data n] of Blood by Automat ed count Erythro 58.0 82.5 - fL Low No Sep 21 cyte 99.8 informa 2017 mean tion in 7:31 AM corpusc source ular data volume [Entiti c volume] by Automat ed count Erythro 16.3 27.0 - pg Low No Sep 21 cyte 34.3 informa 2017 mean tion in 7:31 AM corpusc source ular data hemoglo bin [Entiti c mass] by Automat ed count Erythro 28.1 32.1 - gm/dL Low No Sep 21 cyte 35.3 informa 2017 mean tion in 7:31 AM corpusc source ular data hemoglo bin concent ration [Mass/v olume] by Automat ed count Erythro 20.5 11.5 - % High No Sep 21 cyte 15.0 informa 2017 distrib tion in 7:31 AM ution source width data [Ratio] by Automat ed count Platele 120 144 - x10(3)/ Low No Sep 21 ts 423 mcL informa 2017 [#/volu tion in 7:31 AM me] in source Blood data by Automat ed count MPV 8.9 6.8 - fL No No Sep 21 10.8 informa informa 2017 tion in tion in 7:31 AM source source data data Auto Diff Observa Value Referen Units Interpr Notes Date tion ce etation Range Neutrop 56.2 No % No No Sep 21 hils informa informa informa 2017 [#/volu tion in tion in tion in 8:02 AM me] in source source source Blood data data data by Automat ed count Lymphoc 28.9 No % No No Sep 21 ytes informa informa informa 2017 [#/volu tion in tion in tion in 8:02 AM me] in source source source Blood data data data by Automat ed count Monocyt 10.7 No % No No Sep 21 es informa informa informa 2017 [#/volu tion in tion in tion in 8:02 AM me] in source source source Blood data data data by Automat ed count Eos 3.4 No % No No Sep 21 Percent informa informa informa 2017 tion in tion in tion in 8:02 AM source source source data data data Baso 0.8 No % No No Sep 21 Percent informa informa informa 2017 tion in tion in tion in 8:02 AM source source source data data data Neut# 2.5 1.8 - x10(3)/ No No Sep 21 7.7 mcL informa informa 2017 tion in tion in 8:02 AM source source data data Lymph# 1.3 0.6 - x10(3)/ No No Sep 21 4.8 mcL informa informa 2017 tion in tion in 8:02 AM source source data data [place]# 0.5 0.0 - x10(3)/ No No Sep 21 1.3 mcL informa informa 2017 tion in tion in 8:02 AM source source data data Eos# 0.1 0.0 - x10(3)/ No No Sep 21 0.5 mcL informa informa 2017 tion in tion in 8:02 AM source source data data Baso# 0.0 0.0 - x10(3)/ No No Sep 21 0.2 mcL informa informa 2017 tion in tion in 8:02 AM source source data data TSH Observa Value Referen Units Interpr Notes Date tion ce etation Range Thyrotr 6.380 0.270 - mcIU/mL High No Sep 21 opin 4.200 informa 2017 [Units/ tion in 7:25 AM volume] source in data Serum or Plasma
--- OUTSIDE RECORDS SUMMARY | 2017-08-03 17:54 | External Medical Summary Rpt ---
[...] [facility] AM [Mass/vol source ume] in data [place] [address] Serum [address] [place], [place] [id number] Engine Head Repairer: Taye Walden PhD, Phone: [phone] HCV FibroSure Observa Value Referen Units [...] APPROVA L IS NOT NECESSA RY.Perf orming site:[place] [id number]: Catherine schneider MDFor inquiri es, the physici an may contact Branch: [phone] Lab: [phone] Fibrosis 0.00 - No High No Jul [...] report please contact custome rservic e at [phone] .Perfor med at: - [facility] [address], [place], [place] [address]Lab Directo r: Alex Webb MD, Phone: [phone] Fibrosi Comment . 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: 1 HR POST-TRANSFUSION Hematocri 37.0 - % [...] source source 17 PM data data data [id number] prepara RELEASE tion D [Type] 7 2301Spa rks,Bacilio nO POSITIV E Blood product special preparation [Type] Observa Value Referen Units Interpr Notes Date ti ce etation Range Blood BLOOD No No No BLOOD Sep 30 product UNIT informa informa informa UNIT # 2017 RELEASE ti in in in : W0382 8:20 PM special source source source 17 data data data [id number] prepara RELEASE tion D [Type] 7 2020Spa rks,Bacilio nO POSITIV E Blood product special preparation [Type] Observa Value Referen Units Interpr Notes Date tion ce etation Range Blood BLOOD No No No BLOOD Sep 30 product UNIT informa informa informa UNIT # 2017 RELEASE tion in in in : [id number] 5:57 PM special source source source 17 data data data [id number] prepara RELEASE tion D [Type] 7Noel,R ichardO [...] - [facility] PM in Serum or Plasma [id number] [place], [place] [id number] Engine Head Repairer: Taye Walden PhD, Phone: [phone] Folate [Mass/volume] in Serum or Plasma Observa Value Referen Units Interpr Notes Date tion ce etation Range Folate >3.0 ng/mL No Performed Sep 30 [Mass/vol informati at: 2016 2:30 ume] in on in - [facility] PM Serum or source Plasma data [id number] [place], [place] [id number] Engine Head Repairer: Taye Walden PhD, Phone: [phone] Blood type & Crossmatch panel in [...] blood tion in tion in tion in [facility] 1:17 PM smear: source source source e\.br\( [...] Interpr Notes Date tion ce etation Range [place] 2 No % No No Sep 21 [...] in 8:02 AM source source data data [place]# 0.5 0.0 - x10(3)/ No No Sep [...]
== END 2017-07-26 10:20 | disposition home or self-care (01) | DRG 812 ==
LOC: 2ND 10:48
PROVIDERS: Family Medicine; Internal Medicine Gastroenterology
PROC: 30233N1 Transfusion of Nonautologous Red Blood Cells into Peripheral Vein, Percutaneous Approach (ICD-10-PCS; principal; 2017-07-25 10:02)
PROC: 0W3P8ZZ Control Bleeding in Gastrointestinal Tract, Via Natural or Artificial Opening Endoscopic (ICD-10-PCS; principal; 2017-07-25 10:02)
PROC: 0DB78ZX Excision of Stomach, Pylorus, Via Natural or Artificial Opening Endoscopic, Diagnostic (ICD-10-PCS; principal; 2017-07-25 10:02)
PROC: 0DB68ZX Excision of Stomach, Via Natural or Artificial Opening Endoscopic, Diagnostic (ICD-10-PCS; principal; 2017-07-25 10:02)
DX: D50.9 Iron deficiency anemia, unspecified (principal); I85.10 Secondary esophageal varices without bleeding; K74.60 Unspecified cirrhosis of liver; I47.1 Supraventricular tachycardia; K31.819 Angiodysplasia of stomach and duodenum without bleeding; K29.40 Chronic atrophic gastritis without bleeding; K75.81 Nonalcoholic steatohepatitis (NASH); Z23 Encounter for immunization
CPT/HCPCS: C2618; J1756; P9016

== ENCOUNTER → 2017-07-28 | Outpatient (CLI) | payer MEDICARE, OTHER ==
[~2017-07-28] MED LIST changes: +ALLEGRA ALLERGY60 MG PO; +CARAFATE 1GM TAB1 GM PO; +EVISTA60 MG PO; +FEOSOL325 MG PO; +FLONASE 50 MCG16 GM; +HCTZ/TRIAMTEREN1 CAP PO; +K-DUR 1010 MEQ PO; +LISINOPRIL 5MG T5 MG PO; +PANTOPRAZOLE SO40 MG PO
--- NOTE | 2017-08-02 11:24 | RADIOLOGY REPORT PS360 ---
DIG MAMM-SCREEN KIRILL W/CAD CAD Screening COMPARISON: Digital mammograms 07/26/2016 and 07/23/2015 INDICATION: Is a history of breast cancer patient's paternal aunt. This been previous cyst aspiration left breast. There is a heart monitor partially visualized in the left breast which was noted previously. TECHNIQUE: Standard CC and MLO images were obtained. R2 CAD reviewed. FINDINGS: Scattered fiber glandular densities are seen in the breast. The metallic device is again seen upper inner quadrant left breast. There is no new or suspicious lesion in either breast and there are no suspicious microcalcifications. IMPRESSION: Stable exam with no suspicious lesion seen recommend yearly follow-up BI-RADS CATEGORY: 2_Benign RECOMMENDED FOLLOWUP: 12M 12 MONTH FOLLOW-UP (A letter has been sent to the patient regarding results of the study.)
== END ==
LOC: RAD 08:42
DX: Z12.31 Encounter for screening mammogram for malignant neoplasm of breast (principal)
CPT/HCPCS: G0202